=== PATIENT | female | born 1985 | race Hispanic/Latino ===

== ENCOUNTER 2025-02-05 14:13 | Emergency (ER) | payer BC, OTHER, SELFPAY ==
[2025-02-05 14:14] VITALS: BP 145/99
[2025-02-05 15:10] VITALS: BP 154/106
[2025-02-05 15:12] VITALS: BMI 32.9
--- NOTE | 2025-02-05 15:14 | ED.GENMED ---
History of Present Illness
General
Chief Complaint: Head Injury
Source: patient
Exam Limitations: none
Time Seen by Provider: 02/05/25 15:07
History of Present Illness
History of Present Illness:
39-year-old female tripped and fell yesterday landing on the right side of her face. Ongoing headache. Had 2 very brief syncopal episodes very shortly after the event. However syncope did not cause the event. She was awake and ensured that it
was from tripping. Mild pain to the right hand. Ongoing right sided headache and some blurry vision. No other complaints no neck pain
Past History
Past History
ED Past Medical History: Other (ADHD)
ED Past Surgical History: Cholecystectomy and Other (Breast augmentation)
Review of Systems
Review of Systems
All Other Systems: Not applicable
Respiratory: Reports no symptoms
Cardiac: Reports no symptoms
ABD/GI: Reports no symptoms
Phy Exam
Physical Exam
Physical Exam:
TRAUMA EXAM:
VITAL SIGNS: Vital signs reviewed, cooperative
DISTRESS: No active disease
EYES: Pupils reactive, no orbital trauma
NOSE: No deformity or epistaxis
FACE AND SCALP: No scalp trauma, external canals no blood. Mild swelling to the right upper lip. Teeth stable. TMJ stable. Mild right zygoma tenderness.
NECK: Supple nontender
BACK: Back nontender, pelvis stable to compression
RESPIRATORY: No distress, breath sounds normal, no tender chest wall
CARDIAC: No murmur, pulses equal and strong
ABDOMEN: Soft nontender bowel sounds normal
SKIN: Skin intact no bleeding, color normal
EXTREMITIES: Nontender. No significant swelling or tenderness at the right hand. No deformity. No point tenderness. No wrist tenderness.
NEUROLOGICAL: Alert, oriented, no motor deficits
PSYCH: Mood affect normal
Course
Orders/Labs/Results
Orders:
Orders
02/05/25 15:14
Electrocardiogram (*1) Urgent
Reason for Study: Other
Other Reason for Exam: trauma
CT Facial Bones W/o Iv Contras Urgent
Comment:
Reason For Exam: Right facial trauma/headache
CT Head W/o Iv Contrast Urgent
Comment:
Reason For Exam: Right facial trauma/headache
Cardiac Monitoring- Treatment ONCE
EKG- Treatment ONCE
Vital Signs
Initial and Last Documented VS:
Initial Vital Signs
Temp Pulse Resp BP Pulse Ox
97.5 F 99 18 145/99 98
02/05/25 14:14 02/05/25 14:14 02/05/25 14:14 02/05/25 14:14 02/05/25 14:14
Last Documented Vital Signs
Temp Pulse Resp BP Pulse Ox
97.5 F 68 14 118/75 100
02/05/25 14:14 02/05/25 17:15 02/05/25 17:15 02/05/25 17:00 02/05/25 17:15
MDM/Problems Addressed
Differential Diagnosis Includes:
Patient describing post trauma mild concussion symptoms. With ongoing headache we will CT the head. Also CT facial bones. No new neck symptoms no indication for cervical spine testing. Neurologically stable. No significant bony abnormalities.
Patient not describing syncope to cause the event. Her brief passing out spells occurred very briefly after the event and likely related to the trauma. We will get an EKG and monitor her while in the ER. Patient denies . She has an IUD
in place
*Pulse Oximetry
Patient hypoxic: no
*EKG
Interpreted by ED Provider?: Yes
Interpretation: normal
Comparison EKG: no comparison EKG present
Heart Rate: 71
Rate: normal
Rhythm: sinus
[place]: normal axis
Interval: normal interval
QRS Pattern: normal QRS
Ischemia: no ischemia
*Machine Lead Burner Interpretation
Rate: normal
Interpretation: normal
Heart Rate: 68
Rhythm: sinus
*Critical Care Note
Total Time (30-74mins, 75-104mins- exclusive of procedures): Not Applicable
Update Note
Update Note:
Workup unremarkable. Patient has remained stable. Discharged to follow-up
ED Attending Note
-
Portions of this chart may have been created with voice recognition software.� Occasional wrong word or��sound alike� substitutions may have occurred due to the inherent limitations of voice recognition software.
Discharge Plan
Departure
Patient Disposition: Home (Routine Discharge)
Date of Disposition: 02/05/25
Time of Disposition: 17:14
Patient with high blood pressure during this ER visit?: Yes
Discharge Problem:
Head injury, Facial contusion
Instructions: Head Injury in Adults (DC), Contusion (DC), BLOOD PRESSURE
Referrals:
Jose Akbar MD [Family Provider] - Follow up in 2-3 days
Interventions
Interventions:
*Risk Screen - Suicide Last Done: 02/05/25 14:14
*General Assessment Last Done: 02/05/25 14:14
*Neglect/Abuse Screening Last Done: 02/05/25 14:14
*ED- Fall Risk Assessment Last Done: 02/05/25 15:12
*ED COVID-19 Vaccine History Last Done: 02/05/25 15:17
*Nursing Disposition Last Done: 02/05/25 17:50
ED- Neurological Assessment Last Done: 02/05/25 15:12
ED-Skin Assessment Last Done: 02/05/25 15:12
Discharge Date and Time
Discharge Date/Time: 02/05/25 17:54
Print Language: TANZANIAN
[2025-02-05 16:00] VITALS: BP 133/89
[2025-02-05 17:00] VITALS: BP 118/75
== END 2025-02-05 17:54 | disposition home or self-care (01) ==
LOC: EMR 14:13
PROVIDERS: EMERGENCY PHYSICIAN Emergency Medicine; FAMILY PHYSICIAN Family Medicine
DX: S00.83XA Contusion of other part of head, initial encounter (principal); R55 Syncope and collapse; S09.90XA Unspecified injury of head, initial encounter; H53.8 Other visual disturbances; R51.9 Headache, unspecified; M79.641 Pain in right hand; R22.0 Localized swelling, mass and lump, head; W01.0XXA Fall on same level from slipping, tripping and stumbling without subsequent striking against object, initial encounter; R03.0 Elevated blood-pressure reading, without diagnosis of hypertension; F90.9 Attention-deficit hyperactivity disorder, unspecified type; Z90.49 Acquired absence of other specified parts of digestive tract
CPT/HCPCS: 99284; 70450; 70486; 93005